=== PATIENT | female | born 1945 | race Caucasian/White ===

== ENCOUNTER 2020-02-14 11:56 | Inpatient (IN) ==
[2020-02-14] MEDS ORDERED: Venlafaxine XR (24 HR) 37.5 MG CAP.ER.24H PO SCH (21:45)
[2020-02-14] MEDS ORDERED: Nystatin POWDER 30 GM BOTTLE TP SCH (22:00)
[2020-02-14] MEDS: *HR* HYDROcodone/Acet 7.5/325 mg TABLET PO PRN (22:28)
[2020-02-14] MEDS: Ondansetron ODT 4 MG TAB.RAPDIS SL PRN (22:28)
[2020-02-14] MEDS: *HR* LORazepam 0.5 MG TABLET PO SCH (23:23)
[2020-02-15] MEDS: Nystatin POWDER 30 GM BOTTLE TP SCH ×4 (00:26→21:19)
[2020-02-15] MEDS: Venlafaxine XR (24 HR) 37.5 MG CAP.ER.24H PO SCH ×2 (00:26→10:26)
[2020-02-15] MEDS: *HR* HYDROcodone/Acet 7.5/325 mg TABLET PO PRN ×2 (04:34→15:59)
[2020-02-15 07:45] LABS: Hematocrit 29.2 % (35.3-44.9); Hemoglobin 9.3 g/dL (11.5-15.4); Mean Corpuscular HGB Conc 31.8 g/dL (31.6-35.5); Mean Corpuscular Hemoglobin 32.1 pg (28.0-33.3); Mean Corpuscular Volume 100.7 fL (83.0-100.0); Mean Platelet Volume 10.5 fL (9.4-12.4); Platelet Count 266 K/mcL (140-400); Red Cell Distribution Width 17.3 % (11.5-14.5); White Blood Count 10.9 K/mcL (4.3-11.1)
[2020-02-15 07:52] LABS: INR 1.6; Prothrombin Time 18.3 Seconds (9.4-12.1)
[2020-02-15 07:55] LABS: Activated Partial Thrombo Time 32.1 Seconds (26.0-36.0)
[2020-02-15 08:04] LABS: BUN/Creatinine Ratio 27 (6-26); Blood Urea Nitrogen 24 mg/dL (8-23); Calcium 8.2 mg/dL (8.6-10.3); Carbon Dioxide 32 mEq/L (23-29); Chloride 105 mEq/L (98-107); Glucose 64 mg/dL (70-105); Osmolality,Calculated 294 (280-300); Potassium 3.8 mEq/L (3.5-5.1); Sodium 141 mEq/L (136-145); eGFR For African Americans > 60 (> 60); eGFR For Non-African Americans > 60 (> 60)
[2020-02-15 08:25] LABS: Lymphocytes # 1.3 K/mcL (0.6-4.6); Macrocytosis Present (Not Present); Neutrophils # 9.2 K/mcL (1.6-8.9)
[2020-02-15] MEDS: predniSONE 5 MG TABLET PO SCH ×2 (10:25→21:14)
[2020-02-15] MEDS: Folic Acid 1 MG TABLET PO SCH (10:26)
[2020-02-15] MEDS: *HR* Amiodarone 200 MG TABLET PO SCH (10:26)
[2020-02-15] MEDS: Celecoxib 200 MG CAPSULE PO SCH (10:27)
[2020-02-15] MEDS: Cefdinir 300 MG CAPSULE PO SCH ×2 (10:27→21:14)
[2020-02-15] MEDS: *HR* LORazepam 0.5 MG TABLET PO SCH ×2 (10:27→21:14)
[2020-02-15] MEDS: *HR* Enoxaparin 100 MG/ML SYRINGE SQ SCH ×2 (15:58→17:30)
[2020-02-15] MEDS ORDERED: Warfarin perPT PO PRN (18:00)
[2020-02-15] MEDS ORDERED: *HR* Warfarin 1 MG TABLET PO ONE (18:00)
[2020-02-15] MEDS: *HR* OxyCODONE/APAP 5/325 TABLET PO PRN (21:28)
[2020-02-16 07:24] LABS: Hemoglobin 9.7 g/dL (11.5-15.4); Mean Corpuscular HGB Conc 32.3 g/dL (31.6-35.5); Mean Corpuscular Hemoglobin 32.6 pg (28.0-33.3); Mean Corpuscular Volume 100.7 fL (83.0-100.0); Mean Platelet Volume 10.4 fL (9.4-12.4); Platelet Count 242 K/mcL (140-400); Red Blood Count 2.98 M/mcL (3.82-4.97); Red Cell Distribution Width 17.2 % (11.5-14.5); White Blood Count 12.8 K/mcL (4.3-11.1)
[2020-02-16 07:31] LABS: INR 1.7; Prothrombin Time 19.4 Seconds (9.4-12.1)
[2020-02-16 07:41] LABS: BUN/Creatinine Ratio 27 (6-26); Blood Urea Nitrogen 21 mg/dL (8-23); Calcium 8.2 mg/dL (8.6-10.3); Carbon Dioxide 31 mEq/L (23-29); Chloride 102 mEq/L (98-107); Glucose 98 mg/dL (70-105); Magnesium 1.8 mg/dL (1.6-2.6); Osmolality,Calculated 289 (280-300); Potassium 4.1 mEq/L (3.5-5.1); Sodium 138 mEq/L (136-145); eGFR For African Americans > 60 (> 60); eGFR For Non-African Americans > 60 (> 60)
[2020-02-16] MEDS: *HR* LORazepam 0.5 MG TABLET PO SCH ×2 (08:34→20:11)
[2020-02-16] MEDS: Folic Acid 1 MG TABLET PO SCH (08:34)
[2020-02-16] MEDS: predniSONE 5 MG TABLET PO SCH ×2 (08:34→20:11)
[2020-02-16] MEDS: Cefdinir 300 MG CAPSULE PO SCH ×2 (08:35→20:10)
[2020-02-16] MEDS: *HR* Amiodarone 200 MG TABLET PO SCH (08:35)
[2020-02-16] MEDS: Venlafaxine XR (24 HR) 37.5 MG CAP.ER.24H PO SCH (08:35)
[2020-02-16] MEDS: Nystatin POWDER 30 GM BOTTLE TP SCH ×3 (08:36→20:12)
[2020-02-16] MEDS: *HR* OxyCODONE/APAP 5/325 TABLET PO PRN ×2 (08:37→20:11)
[2020-02-16] MEDS: Celecoxib 200 MG CAPSULE PO SCH (08:45)
[2020-02-16] MEDS: *HR* Methotrexate 2.5 MG TABLET PO SCH (08:45)
[2020-02-16] MEDS: Celecoxib 100 MG CAPSULE PO SCH (10:29)
[2020-02-16] MEDS: Furosemide 20 MG TABLET PO SCH (17:28)
[2020-02-16] MEDS ORDERED: *HR* Warfarin 1 MG TABLET PO ONE (18:00)
[2020-02-17 08:14] LABS: INR 1.7
[2020-02-17] MEDS: *HR* LORazepam 0.5 MG TABLET PO SCH ×2 (08:14→21:04)
[2020-02-17] MEDS: Celecoxib 100 MG CAPSULE PO SCH (08:14)
[2020-02-17] MEDS: *HR* Amiodarone 200 MG TABLET PO SCH (08:15)
[2020-02-17] MEDS: *HR* OxyCODONE/APAP 5/325 TABLET PO PRN ×2 (08:15→21:09)
[2020-02-17] MEDS: Cefdinir 300 MG CAPSULE PO SCH ×2 (08:15→21:04)
[2020-02-17] MEDS: Venlafaxine XR (24 HR) 37.5 MG CAP.ER.24H PO SCH (08:15)
[2020-02-17] MEDS: Folic Acid 1 MG TABLET PO SCH (08:15)
[2020-02-17] MEDS: predniSONE 5 MG TABLET PO SCH ×2 (08:15→21:01)
[2020-02-17] MEDS: Nystatin POWDER 30 GM BOTTLE TP SCH ×3 (08:16→21:03)
[2020-02-17 09:44] LABS: Basophils % 0.3 %; Eosinophils # 0.1 K/mcL (0.0-0.6); Eosinophils % 0.7 %; Hematocrit 30.2 % (35.3-44.9); Hemoglobin 9.7 g/dL (11.5-15.4); Immature Granulocytes % 3.6 % (0-4); Lymphocytes # 1.5 K/mcL (0.6-4.6); Mean Corpuscular HGB Conc 32.1 g/dL (31.6-35.5); Mean Corpuscular Hemoglobin 32.3 pg (28.0-33.3); Mean Corpuscular Volume 100.7 fL (83.0-100.0); Mean Platelet Volume 11.1 fL (9.4-12.4); Monocytes # 0.8 K/mcL (0.0-1.3); Monocytes % 8.2 %; Neutrophils # 7.2 K/mcL (1.6-8.9); Platelet Count 233 K/mcL (140-400); Red Cell Distribution Width 17.2 % (11.5-14.5); Segmented Neutrophils % 72.2 %
[2020-02-17] MEDS ORDERED: *HR* Warfarin 2 MG TABLET PO ONE (18:00)
[2020-02-18] MEDS: *HR* OxyCODONE/APAP 5/325 TABLET PO PRN ×2 (06:31→11:55)
[2020-02-18 07:18] LABS: Basophils % 0.4 %; Eosinophils # 0.1 K/mcL (0.0-0.6); Eosinophils % 1.4 %; Hemoglobin 9.7 g/dL (11.5-15.4); Immature Granulocytes % 4.4 % (0-4); Lymphocytes # 1.4 K/mcL (0.6-4.6); Lymphocytes % 19.5 %; Mean Corpuscular HGB Conc 32.3 g/dL (31.6-35.5); Mean Corpuscular Hemoglobin 32.4 pg (28.0-33.3); Mean Corpuscular Volume 100.3 fL (83.0-100.0); Mean Platelet Volume 10.8 fL (9.4-12.4); Monocytes # 0.3 K/mcL (0.0-1.3); Monocytes % 4.1 %; Platelet Count 226 K/mcL (140-400); Red Blood Count 2.99 M/mcL (3.82-4.97); Red Cell Distribution Width 17.4 % (11.5-14.5); Segmented Neutrophils % 70.2 %; White Blood Count 7.1 K/mcL (4.3-11.1)
[2020-02-18 07:28] LABS: INR 1.7; Prothrombin Time 19.2 Seconds (9.4-12.1)
[2020-02-18 07:29] LABS: BUN/Creatinine Ratio 32 (6-26); Blood Urea Nitrogen 23 mg/dL (8-23); Calcium 8.2 mg/dL (8.6-10.3); Carbon Dioxide 32 mEq/L (23-29); Chloride 104 mEq/L (98-107); Glucose 95 mg/dL (70-105); Osmolality,Calculated 293 (280-300); Potassium 4.1 mEq/L (3.5-5.1); Sodium 140 mEq/L (136-145); eGFR For African Americans > 60 (> 60); eGFR For Non-African Americans > 60 (> 60)
[2020-02-18] MEDS: Celecoxib 100 MG CAPSULE PO SCH (09:01)
[2020-02-18] MEDS: Cefdinir 300 MG CAPSULE PO SCH ×2 (09:02→21:02)
[2020-02-18] MEDS: *HR* Amiodarone 200 MG TABLET PO SCH (09:02)
[2020-02-18] MEDS: predniSONE 5 MG TABLET PO SCH ×2 (09:02→20:59)
[2020-02-18] MEDS: Folic Acid 1 MG TABLET PO SCH (09:02)
[2020-02-18] MEDS: *HR* LORazepam 0.5 MG TABLET PO SCH ×2 (09:02→21:03)
[2020-02-18] MEDS: Venlafaxine XR (24 HR) 37.5 MG CAP.ER.24H PO SCH (09:02)
[2020-02-18] MEDS: Nystatin POWDER 30 GM BOTTLE TP SCH ×3 (09:03→21:05)
[2020-02-18] MEDS: *HR* HYDROcodone/Acet 7.5/325 mg TABLET PO PRN ×2 (14:36→21:01)
[2020-02-18] MEDS: Furosemide 20 MG TABLET PO SCH (17:20)
[2020-02-18] MEDS ORDERED: *HR* Warfarin 2.5 MG TABLET PO ONE (18:00)
[2020-02-19 07:11] LABS: Hematocrit 29.2 % (35.3-44.9); Hemoglobin 9.4 g/dL (11.5-15.4); Mean Corpuscular HGB Conc 32.2 g/dL (31.6-35.5); Mean Corpuscular Hemoglobin 32.8 pg (28.0-33.3); Mean Corpuscular Volume 101.7 fL (83.0-100.0); Mean Platelet Volume 10.8 fL (9.4-12.4); Platelet Count 219 K/mcL (140-400); Red Blood Count 2.87 M/mcL (3.82-4.97); Red Cell Distribution Width 17.3 % (11.5-14.5)
[2020-02-19 07:27] LABS: INR 1.7; Prothrombin Time 18.9 Seconds (9.4-12.1)
[2020-02-19 07:43] LABS: BUN/Creatinine Ratio 31 (6-26); Blood Urea Nitrogen 25 mg/dL (8-23); Calcium 8.1 mg/dL (8.6-10.3); Carbon Dioxide 31 mEq/L (23-29); Chloride 104 mEq/L (98-107); Glucose 90 mg/dL (70-105); Osmolality,Calculated 296 (280-300); Sodium 141 mEq/L (136-145); eGFR For African Americans > 60 (> 60); eGFR For Non-African Americans > 60 (> 60)
[2020-02-19] MEDS: *HR* Amiodarone 200 MG TABLET PO SCH (09:17)
[2020-02-19] MEDS: Venlafaxine XR (24 HR) 37.5 MG CAP.ER.24H PO SCH (09:17)
[2020-02-19] MEDS: *HR* LORazepam 0.5 MG TABLET PO SCH ×2 (09:17→20:00)
[2020-02-19] MEDS: predniSONE 5 MG TABLET PO SCH ×2 (09:17→20:00)
[2020-02-19] MEDS: Folic Acid 1 MG TABLET PO SCH (09:17)
[2020-02-19] MEDS: Celecoxib 100 MG CAPSULE PO SCH (09:19)
[2020-02-19] MEDS: Nystatin POWDER 30 GM BOTTLE TP SCH ×3 (09:19→20:01)
[2020-02-19] MEDS: Cefdinir 300 MG CAPSULE PO SCH ×2 (09:19→20:00)
[2020-02-19] MEDS: *HR* HYDROcodone/Acet 7.5/325 mg TABLET PO PRN (09:19)
[2020-02-19] MEDS: *HR* OxyCODONE/APAP 5/325 TABLET PO PRN ×2 (14:36→20:40)
[2020-02-19] MEDS ORDERED: *HR* Warfarin 3 MG TABLET PO ONE (18:00)
[2020-02-20 07:45] LABS: Prothrombin Time 22.2 Seconds (9.4-12.1)
[2020-02-20] MEDS: Cefdinir 300 MG CAPSULE PO SCH ×2 (08:36→22:20)
[2020-02-20] MEDS: *HR* LORazepam 0.5 MG TABLET PO SCH ×2 (08:37→22:20)
[2020-02-20] MEDS: Venlafaxine XR (24 HR) 37.5 MG CAP.ER.24H PO SCH (08:37)
[2020-02-20] MEDS: *HR* OxyCODONE/APAP 5/325 TABLET PO PRN ×2 (08:37→17:40)
[2020-02-20] MEDS: Celecoxib 100 MG CAPSULE PO SCH (08:38)
[2020-02-20] MEDS: predniSONE 5 MG TABLET PO SCH ×2 (08:38→22:20)
[2020-02-20] MEDS: *HR* Amiodarone 200 MG TABLET PO SCH (08:38)
[2020-02-20] MEDS: Folic Acid 1 MG TABLET PO SCH (08:38)
[2020-02-20] MEDS: Nystatin POWDER 30 GM BOTTLE TP SCH ×3 (08:47→22:21)
[2020-02-20] MEDS: Furosemide 20 MG TABLET PO SCH (17:36)
[2020-02-20] MEDS ORDERED: *HR* Warfarin 3 MG TABLET PO ONE (18:00)
[2020-02-20] MEDS: *HR* HYDROcodone/Acet 7.5/325 mg TABLET PO PRN (22:20)
[2020-02-21] MEDS: Folic Acid 1 MG TABLET PO SCH (08:56)
[2020-02-21] MEDS: Celecoxib 100 MG CAPSULE PO SCH (08:56)
[2020-02-21] MEDS: Cefdinir 300 MG CAPSULE PO SCH ×2 (08:56→21:42)
[2020-02-21] MEDS: Venlafaxine XR (24 HR) 37.5 MG CAP.ER.24H PO SCH (08:56)
[2020-02-21] MEDS: *HR* OxyCODONE/APAP 5/325 TABLET PO PRN ×2 (08:56→21:43)
[2020-02-21] MEDS: *HR* Amiodarone 200 MG TABLET PO SCH (08:57)
[2020-02-21] MEDS: predniSONE 5 MG TABLET PO SCH ×2 (08:57→21:41)
[2020-02-21] MEDS: Nystatin POWDER 30 GM BOTTLE TP SCH ×3 (08:57→21:44)
[2020-02-21] MEDS: *HR* LORazepam 0.5 MG TABLET PO SCH ×2 (08:57→21:42)
[2020-02-21 16:01] LABS: INR 2.8; Prothrombin Time 31.7 Seconds (9.4-12.1)
[2020-02-22 07:02] LABS: INR 2.7; Prothrombin Time 30.7 Seconds (9.4-12.1)
[2020-02-22] MEDS: Celecoxib 100 MG CAPSULE PO SCH (09:13)
[2020-02-22] MEDS: *HR* Amiodarone 200 MG TABLET PO SCH (09:14)
[2020-02-22] MEDS: Folic Acid 1 MG TABLET PO SCH (09:14)
[2020-02-22] MEDS: Cefdinir 300 MG CAPSULE PO SCH ×2 (09:14→21:29)
[2020-02-22] MEDS: *HR* LORazepam 0.5 MG TABLET PO SCH ×2 (09:15→21:30)
[2020-02-22] MEDS: predniSONE 5 MG TABLET PO SCH ×2 (09:16→21:31)
[2020-02-22] MEDS: Nystatin POWDER 30 GM BOTTLE TP SCH ×3 (09:17→21:35)
[2020-02-22] MEDS: Venlafaxine XR (24 HR) 37.5 MG CAP.ER.24H PO SCH (09:17)
[2020-02-22] MEDS: *HR* OxyCODONE/APAP 5/325 TABLET PO PRN ×2 (09:26→21:32)
[2020-02-22] MEDS: Furosemide 20 MG TABLET PO SCH (17:33)
[2020-02-22] MEDS ORDERED: *HR* Warfarin 1 MG TABLET PO ONE (18:00)
[2020-02-23 07:49] LABS: Hematocrit 30.4 % (35.3-44.9); Hemoglobin 9.7 g/dL (11.5-15.4); Mean Corpuscular HGB Conc 31.9 g/dL (31.6-35.5); Mean Corpuscular Hemoglobin 32.4 pg (28.0-33.3); Mean Corpuscular Volume 101.7 fL (83.0-100.0); Mean Platelet Volume 10.6 fL (9.4-12.4); Platelet Count 183 K/mcL (140-400); Red Blood Count 2.99 M/mcL (3.82-4.97); Red Cell Distribution Width 17.6 % (11.5-14.5); White Blood Count 9.8 K/mcL (4.3-11.1)
[2020-02-23 08:10] LABS: INR 2.5; Prothrombin Time 28.2 Seconds (9.4-12.1)
[2020-02-23 08:12] LABS: BUN/Creatinine Ratio 33 (6-26); Blood Urea Nitrogen 29 mg/dL (8-23); Calcium 8.3 mg/dL (8.6-10.3); Carbon Dioxide 31 mEq/L (23-29); Chloride 105 mEq/L (98-107); Glucose 95 mg/dL (70-105); Osmolality,Calculated 296 (280-300); Potassium 4.1 mEq/L (3.5-5.1); Sodium 140 mEq/L (136-145); eGFR For African Americans > 60 (> 60); eGFR For Non-African Americans > 60 (> 60)
[2020-02-23 08:40] LABS: Lymphocytes # 1.2 K/mcL (0.6-4.6); Monocytes # 0.6 K/mcL (0.0-1.3); Neutrophils # 6.7 K/mcL (1.6-8.9)
[2020-02-23 08:41] LABS: Anisocytosis 1+ (Not Present); Macrocytosis Present (Not Present); Platelet Estimate Normal (Normal)
[2020-02-23] MEDS: Cefdinir 300 MG CAPSULE PO SCH ×2 (10:14→21:55)
[2020-02-23] MEDS: Celecoxib 100 MG CAPSULE PO SCH (10:14)
[2020-02-23] MEDS: *HR* OxyCODONE/APAP 5/325 TABLET PO PRN ×2 (10:14→21:56)
[2020-02-23] MEDS: *HR* LORazepam 0.5 MG TABLET PO SCH ×2 (10:14→21:55)
[2020-02-23] MEDS: *HR* Amiodarone 200 MG TABLET PO SCH (10:15)
[2020-02-23] MEDS: Folic Acid 1 MG TABLET PO SCH (10:15)
[2020-02-23] MEDS: Venlafaxine XR (24 HR) 37.5 MG CAP.ER.24H PO SCH (10:15)
[2020-02-23] MEDS: predniSONE 5 MG TABLET PO SCH ×2 (10:15→21:56)
[2020-02-23] MEDS: Nystatin POWDER 30 GM BOTTLE TP SCH ×3 (10:19→17:00)
[2020-02-23] MEDS: *HR* Methotrexate 2.5 MG TABLET PO SCH (10:21)
[2020-02-23] MEDS ORDERED: *HR* Warfarin 1 MG TABLET PO ONE (18:00)
[2020-02-24 07:12] LABS: INR 2.6; Prothrombin Time 28.9 Seconds (9.4-12.1)
[2020-02-24] MEDS: *HR* Amiodarone 200 MG TABLET PO SCH (08:21)
[2020-02-24] MEDS: *HR* LORazepam 0.5 MG TABLET PO SCH ×2 (08:21→20:02)
[2020-02-24] MEDS: Venlafaxine XR (24 HR) 37.5 MG CAP.ER.24H PO SCH (08:21)
[2020-02-24] MEDS: Folic Acid 1 MG TABLET PO SCH (08:22)
[2020-02-24] MEDS: Cefdinir 300 MG CAPSULE PO SCH ×2 (08:22→20:02)
[2020-02-24] MEDS: Celecoxib 100 MG CAPSULE PO SCH (08:23)
[2020-02-24] MEDS: predniSONE 5 MG TABLET PO SCH ×2 (08:25→20:02)
[2020-02-24] MEDS: *HR* HYDROcodone/Acet 7.5/325 mg TABLET PO PRN (08:31)
[2020-02-24] MEDS: Nystatin POWDER 30 GM BOTTLE TP SCH ×3 (11:15→20:03)
[2020-02-24] MEDS: Furosemide 20 MG TABLET PO SCH (17:24)
[2020-02-24] MEDS ORDERED: *HR* Warfarin 1 MG TABLET PO ONE (18:00)
[2020-02-25 07:33] LABS: INR 2.6; Prothrombin Time 29.2 Seconds (9.4-12.1)
[2020-02-25] MEDS: Folic Acid 1 MG TABLET PO SCH (08:10)
[2020-02-25] MEDS: Celecoxib 100 MG CAPSULE PO SCH (08:10)
[2020-02-25] MEDS: predniSONE 5 MG TABLET PO SCH ×2 (08:10→20:20)
[2020-02-25] MEDS: Venlafaxine XR (24 HR) 37.5 MG CAP.ER.24H PO SCH (08:10)
[2020-02-25] MEDS: *HR* LORazepam 0.5 MG TABLET PO SCH ×2 (08:11→20:20)
[2020-02-25] MEDS: *HR* Amiodarone 200 MG TABLET PO SCH (08:11)
[2020-02-25] MEDS: Nystatin POWDER 30 GM BOTTLE TP SCH ×3 (08:12→20:50)
[2020-02-25] MEDS: *HR* HYDROcodone/Acet 7.5/325 mg TABLET PO PRN (09:50)
[2020-02-25] MEDS ORDERED: *HR* Warfarin 1 MG TABLET PO ONE (18:00)
[2020-02-25] MEDS: *HR* OxyCODONE/APAP 5/325 TABLET PO PRN (20:22)
[2020-02-26 05:50] LABS: INR 2.4; Prothrombin Time 27.3 Seconds (9.4-12.1)
[2020-02-26] MEDS: Celecoxib 100 MG CAPSULE PO SCH (09:06)
[2020-02-26] MEDS: predniSONE 5 MG TABLET PO SCH ×2 (09:06→20:34)
[2020-02-26] MEDS: *HR* Amiodarone 200 MG TABLET PO SCH (09:06)
[2020-02-26] MEDS: Venlafaxine XR (24 HR) 37.5 MG CAP.ER.24H PO SCH (09:06)
[2020-02-26] MEDS: *HR* LORazepam 0.5 MG TABLET PO SCH ×2 (09:06→20:34)
[2020-02-26] MEDS: Folic Acid 1 MG TABLET PO SCH (09:07)
[2020-02-26] MEDS: Nystatin POWDER 30 GM BOTTLE TP SCH ×3 (09:07→20:35)
[2020-02-26] MEDS: *HR* OxyCODONE/APAP 5/325 TABLET PO PRN ×2 (14:21→20:34)
[2020-02-26] MEDS: Furosemide 20 MG TABLET PO SCH (17:43)
[2020-02-26] MEDS ORDERED: *HR* Warfarin 2 MG TABLET PO ONE (18:00)
[2020-02-27] MEDS: *HR* OxyCODONE/APAP 5/325 TABLET PO PRN ×2 (06:39→16:06)
[2020-02-27 06:49] LABS: Prothrombin Time 32.2 Seconds (9.4-12.1)
[2020-02-27 06:50] LABS: INR 2.9
[2020-02-27 09:08] LABS: Basophils # 0.1 K/mcL (0.0-0.2); Basophils % 0.6 %; Eosinophils # 0.2 K/mcL (0.0-0.6); Eosinophils % 2.4 %; Hematocrit 30.2 % (35.3-44.9); Hemoglobin 9.7 g/dL (11.5-15.4); Immature Granulocytes % 2.5 % (0-4); Lymphocytes # 2.2 K/mcL (0.6-4.6); Lymphocytes % 22.7 %; Mean Corpuscular HGB Conc 32.1 g/dL (31.6-35.5); Mean Corpuscular Hemoglobin 33.1 pg (28.0-33.3); Mean Corpuscular Volume 103.1 fL (83.0-100.0); Mean Platelet Volume 10.9 fL (9.4-12.4); Monocytes # 0.5 K/mcL (0.0-1.3); Monocytes % 4.9 %; Neutrophils # 6.4 K/mcL (1.6-8.9); Platelet Count 150 K/mcL (140-400); Red Blood Count 2.93 M/mcL (3.82-4.97); Red Cell Distribution Width 17.2 % (11.5-14.5); Segmented Neutrophils % 66.9 %; White Blood Count 9.6 K/mcL (4.3-11.1)
[2020-02-27] MEDS: *HR* Amiodarone 200 MG TABLET PO SCH (09:08)
[2020-02-27] MEDS: predniSONE 5 MG TABLET PO SCH ×2 (09:08→20:46)
[2020-02-27] MEDS: Folic Acid 1 MG TABLET PO SCH (09:09)
[2020-02-27] MEDS: Venlafaxine XR (24 HR) 37.5 MG CAP.ER.24H PO SCH (09:10)
[2020-02-27] MEDS: *HR* LORazepam 0.5 MG TABLET PO SCH ×2 (09:11→20:47)
[2020-02-27] MEDS: Nystatin POWDER 30 GM BOTTLE TP SCH ×3 (09:11→20:47)
[2020-02-27] MEDS: Celecoxib 100 MG CAPSULE PO SCH (09:11)
[2020-02-27 09:22] LABS: BUN/Creatinine Ratio 34 (6-26); Blood Urea Nitrogen 31 mg/dL (8-23); Calcium 8.3 mg/dL (8.6-10.3); Carbon Dioxide 29 mEq/L (23-29); Chloride 104 mEq/L (98-107); Glucose 78 mg/dL (70-105); Osmolality,Calculated 293 (280-300); Potassium 3.9 mEq/L (3.5-5.1); Sodium 139 mEq/L (136-145); eGFR For African Americans > 60 (> 60); eGFR For Non-African Americans 60 (> 60)
[2020-02-27] MEDS: *HR* HYDROcodone/Acet 7.5/325 mg TABLET PO PRN ×2 (10:06→20:46)
[2020-02-27] MEDS ORDERED: *HR* Warfarin 1 MG TABLET PO ONE (18:00)
[2020-02-28 07:58] LABS: INR 3.4
[2020-02-28] MEDS: Venlafaxine XR (24 HR) 37.5 MG CAP.ER.24H PO SCH (08:28)
[2020-02-28] MEDS: *HR* Amiodarone 200 MG TABLET PO SCH (08:28)
[2020-02-28] MEDS: predniSONE 5 MG TABLET PO SCH ×2 (08:28→22:04)
[2020-02-28] MEDS: Celecoxib 100 MG CAPSULE PO SCH (08:28)
[2020-02-28] MEDS: *HR* LORazepam 0.5 MG TABLET PO SCH ×2 (08:28→22:05)
[2020-02-28] MEDS: Folic Acid 1 MG TABLET PO SCH (08:28)
[2020-02-28] MEDS: *HR* OxyCODONE/APAP 5/325 TABLET PO PRN ×2 (08:29→16:56)
[2020-02-28] MEDS: Nystatin POWDER 30 GM BOTTLE TP SCH ×3 (08:33→22:06)
[2020-02-28] MEDS: *HR* HYDROcodone/Acet 7.5/325 mg TABLET PO PRN (11:07)
[2020-02-28] MEDS: Furosemide 20 MG TABLET PO SCH (16:50)
[2020-02-29 08:03] LABS: Basophils # 0.1 K/mcL (0.0-0.2); Basophils % 0.7 %; Eosinophils # 0.2 K/mcL (0.0-0.6); Hematocrit 30.3 % (35.3-44.9); Hemoglobin 9.7 g/dL (11.5-15.4); Lymphocytes # 1.6 K/mcL (0.6-4.6); Lymphocytes % 15.2 %; Mean Corpuscular Hemoglobin 33.1 pg (28.0-33.3); Mean Corpuscular Volume 103.4 fL (83.0-100.0); Mean Platelet Volume 11.2 fL (9.4-12.4); Monocytes # 0.6 K/mcL (0.0-1.3); Monocytes % 5.7 %; Neutrophils # 7.4 K/mcL (1.6-8.9); Platelet Count 136 K/mcL (140-400); Red Blood Count 2.93 M/mcL (3.82-4.97); Red Cell Distribution Width 17.6 % (11.5-14.5); Segmented Neutrophils % 72.4 %; White Blood Count 10.2 K/mcL (4.3-11.1)
[2020-02-29 08:19] LABS: INR 3.2; Prothrombin Time 35.7 Seconds (9.4-12.1)
[2020-02-29 08:21] LABS: Calcium 8.3 mg/dL (8.6-10.3)
[2020-02-29] MEDS: polyethylene glycoL 3350 17 GM POWD.PACK PO PRN (09:56)
[2020-02-29] MEDS: Venlafaxine XR (24 HR) 37.5 MG CAP.ER.24H PO SCH (09:56)
[2020-02-29] MEDS: Celecoxib 100 MG CAPSULE PO SCH (09:57)
[2020-02-29] MEDS: *HR* HYDROcodone/Acet 7.5/325 mg TABLET PO PRN (09:57)
[2020-02-29] MEDS: *HR* Amiodarone 200 MG TABLET PO SCH (09:57)
[2020-02-29] MEDS: predniSONE 5 MG TABLET PO SCH ×2 (09:57→20:39)
[2020-02-29] MEDS: Folic Acid 1 MG TABLET PO SCH (09:57)
[2020-02-29] MEDS: Nystatin POWDER 30 GM BOTTLE TP SCH ×3 (09:58→20:39)
[2020-02-29] MEDS: *HR* OxyCODONE/APAP 5/325 TABLET PO PRN (20:43)
[2020-03-01 07:43] LABS: INR 2.6; Prothrombin Time 28.9 Seconds (9.4-12.1)
[2020-03-01] MEDS: Venlafaxine XR (24 HR) 37.5 MG CAP.ER.24H PO SCH (08:57)
[2020-03-01] MEDS: Folic Acid 1 MG TABLET PO SCH (08:58)
[2020-03-01] MEDS: predniSONE 5 MG TABLET PO SCH ×2 (08:59→20:37)
[2020-03-01] MEDS: *HR* Amiodarone 200 MG TABLET PO SCH (08:59)
[2020-03-01] MEDS: Celecoxib 100 MG CAPSULE PO SCH (09:07)
[2020-03-01] MEDS: Nystatin POWDER 30 GM BOTTLE TP SCH ×3 (09:09→20:37)
[2020-03-01] MEDS: *HR* Methotrexate 2.5 MG TABLET PO SCH (09:10)
[2020-03-01] MEDS: polyethylene glycoL 3350 17 GM POWD.PACK PO PRN (12:00)
[2020-03-01] MEDS: *HR* OxyCODONE/APAP 5/325 TABLET PO PRN ×2 (16:21→22:25)
[2020-03-01] MEDS: Furosemide 20 MG TABLET PO SCH (16:22)
[2020-03-01] MEDS ORDERED: *HR* Warfarin 1 MG TABLET PO ONE (18:00)
[2020-03-01] MEDS: FLEET RC PRN (20:50)
[2020-03-02 06:40] LABS: INR 2.5; Prothrombin Time 28.1 Seconds (9.4-12.1)
[2020-03-02] MEDS: Celecoxib 100 MG CAPSULE PO SCH (09:34)
[2020-03-02] MEDS: Venlafaxine XR (24 HR) 37.5 MG CAP.ER.24H PO SCH (09:34)
[2020-03-02] MEDS: predniSONE 5 MG TABLET PO SCH ×2 (09:35→20:26)
[2020-03-02] MEDS: Folic Acid 1 MG TABLET PO SCH (09:35)
[2020-03-02] MEDS: *HR* Amiodarone 200 MG TABLET PO SCH (09:36)
[2020-03-02] MEDS: *HR* OxyCODONE/APAP 5/325 TABLET PO PRN ×2 (09:41→23:07)
[2020-03-02] MEDS: Nystatin POWDER 30 GM BOTTLE TP SCH ×3 (09:47→20:26)
[2020-03-02] MEDS: Ondansetron ODT 4 MG TAB.RAPDIS SL PRN (17:18)
[2020-03-02] MEDS ORDERED: *HR* Warfarin 1 MG TABLET PO ONE (18:00)
[2020-03-03 07:55] LABS: INR 2.4; Prothrombin Time 26.6 Seconds (9.4-12.1)
[2020-03-03] MEDS: *HR* OxyCODONE/APAP 5/325 TABLET PO PRN ×2 (10:12→20:54)
[2020-03-03] MEDS: Folic Acid 1 MG TABLET PO SCH (10:13)
[2020-03-03] MEDS: Celecoxib 100 MG CAPSULE PO SCH (10:13)
[2020-03-03] MEDS: *HR* Amiodarone 200 MG TABLET PO SCH (10:13)
[2020-03-03] MEDS: predniSONE 5 MG TABLET PO SCH ×2 (10:13→20:44)
[2020-03-03] MEDS: Venlafaxine XR (24 HR) 37.5 MG CAP.ER.24H PO SCH (10:13)
[2020-03-03] MEDS: Nystatin POWDER 30 GM BOTTLE TP SCH ×3 (10:14→20:43)
[2020-03-03] MEDS: polyethylene glycoL 3350 17 GM POWD.PACK PO PRN (10:14)
[2020-03-03] MEDS: Furosemide 20 MG TABLET PO SCH (16:31)
[2020-03-03] MEDS ORDERED: *HR* Warfarin 1 MG TABLET PO ONE (18:00)
[2020-03-04 07:00] LABS: INR 2.9; Prothrombin Time 32.6 Seconds (9.4-12.1)
[2020-03-04] MEDS: Venlafaxine XR (24 HR) 37.5 MG CAP.ER.24H PO SCH (09:08)
[2020-03-04] MEDS: *HR* OxyCODONE/APAP 5/325 TABLET PO PRN ×2 (09:09→16:31)
[2020-03-04] MEDS: Celecoxib 100 MG CAPSULE PO SCH (09:09)
[2020-03-04] MEDS: Folic Acid 1 MG TABLET PO SCH (09:10)
[2020-03-04] MEDS: *HR* Amiodarone 200 MG TABLET PO SCH (09:10)
[2020-03-04] MEDS: predniSONE 5 MG TABLET PO SCH ×2 (09:11→21:33)
[2020-03-04] MEDS: Nystatin POWDER 30 GM BOTTLE TP SCH ×3 (09:12→21:33)
[2020-03-05] MEDS: *HR* Amiodarone 200 MG TABLET PO SCH (08:48)
[2020-03-05] MEDS: *HR* OxyCODONE/APAP 5/325 TABLET PO PRN ×2 (08:48→18:02)
[2020-03-05] MEDS: predniSONE 5 MG TABLET PO SCH ×2 (08:48→21:13)
[2020-03-05] MEDS: Venlafaxine XR (24 HR) 37.5 MG CAP.ER.24H PO SCH (08:48)
[2020-03-05] MEDS: Celecoxib 100 MG CAPSULE PO SCH (08:49)
[2020-03-05] MEDS: Folic Acid 1 MG TABLET PO SCH (08:49)
[2020-03-05] MEDS: Nystatin POWDER 30 GM BOTTLE TP SCH ×3 (08:49→21:09)
[2020-03-05 13:45] LABS: INR 2.7
[2020-03-05 13:46] LABS: Prothrombin Time 30.5 Seconds (9.4-12.1)
[2020-03-05] MEDS ORDERED: *HR* Warfarin 1 MG TABLET PO ONE (18:00)
[2020-03-05] MEDS: Furosemide 20 MG TABLET PO SCH (18:02)
[2020-03-06 08:00] LABS: Hematocrit 28.5 % (35.3-44.9); Hemoglobin 9.2 g/dL (11.5-15.4); Mean Corpuscular HGB Conc 32.3 g/dL (31.6-35.5); Mean Corpuscular Hemoglobin 33.2 pg (28.0-33.3); Mean Corpuscular Volume 102.9 fL (83.0-100.0); Platelet Count 160 K/mcL (140-400); Red Blood Count 2.77 M/mcL (3.82-4.97); Red Cell Distribution Width 17.1 % (11.5-14.5); White Blood Count 8.9 K/mcL (4.3-11.1)
[2020-03-06 08:14] LABS: BUN/Creatinine Ratio 30 (6-26); Blood Urea Nitrogen 29 mg/dL (8-23); Calcium 8.4 mg/dL (8.6-10.3); Carbon Dioxide 28 mEq/L (23-29); Chloride 104 mEq/L (98-107); Glucose 87 mg/dL (70-105); Osmolality,Calculated 291 (280-300); Sodium 138 mEq/L (136-145); eGFR For African Americans > 60 (> 60); eGFR For Non-African Americans 56 (> 60)
[2020-03-06 08:15] LABS: INR 2.6; Prothrombin Time 29.4 Seconds (9.4-12.1)
[2020-03-06] MEDS: *HR* Amiodarone 200 MG TABLET PO SCH (10:17)
[2020-03-06] MEDS: Celecoxib 100 MG CAPSULE PO SCH (10:17)
[2020-03-06] MEDS: Folic Acid 1 MG TABLET PO SCH (10:18)
[2020-03-06] MEDS: predniSONE 5 MG TABLET PO SCH ×2 (10:18→21:28)
[2020-03-06] MEDS: Venlafaxine XR (24 HR) 37.5 MG CAP.ER.24H PO SCH (10:18)
[2020-03-06] MEDS: Nystatin POWDER 30 GM BOTTLE TP SCH ×3 (10:19→21:29)
[2020-03-06] MEDS: *HR* OxyCODONE/APAP 5/325 TABLET PO PRN ×2 (10:23→16:32)
[2020-03-06] MEDS ORDERED: *HR* Warfarin 1 MG TABLET PO ONE (18:00)
[2020-03-07 08:15] LABS: INR 2.5; Prothrombin Time 27.9 Seconds (9.4-12.1)
[2020-03-07] MEDS: Celecoxib 100 MG CAPSULE PO SCH (09:28)
[2020-03-07] MEDS: Folic Acid 1 MG TABLET PO SCH (09:28)
[2020-03-07] MEDS: Nystatin POWDER 30 GM BOTTLE TP SCH ×3 (09:29→19:58)
[2020-03-07] MEDS: Venlafaxine XR (24 HR) 37.5 MG CAP.ER.24H PO SCH (09:29)
[2020-03-07] MEDS: predniSONE 5 MG TABLET PO SCH ×2 (09:29→19:58)
[2020-03-07] MEDS: *HR* Amiodarone 200 MG TABLET PO SCH (09:29)
[2020-03-07] MEDS: *HR* HYDROcodone/Acet 7.5/325 mg TABLET PO PRN (12:09)
[2020-03-07] MEDS: Furosemide 20 MG TABLET PO SCH (17:45)
[2020-03-07] MEDS ORDERED: *HR* Warfarin 1 MG TABLET PO ONE (18:00)
[2020-03-07] MEDS: *HR* OxyCODONE/APAP 5/325 TABLET PO PRN (19:58)
[2020-03-08 07:24] LABS: INR 2.7; Prothrombin Time 30.2 Seconds (9.4-12.1)
[2020-03-08] MEDS: Folic Acid 1 MG TABLET PO SCH (08:51)
[2020-03-08] MEDS: *HR* Amiodarone 200 MG TABLET PO SCH (08:51)
[2020-03-08] MEDS: Celecoxib 100 MG CAPSULE PO SCH (08:51)
[2020-03-08] MEDS: predniSONE 5 MG TABLET PO SCH ×2 (08:51→21:28)
[2020-03-08] MEDS: Venlafaxine XR (24 HR) 37.5 MG CAP.ER.24H PO SCH (08:51)
[2020-03-08] MEDS: *HR* HYDROcodone/Acet 7.5/325 mg TABLET PO PRN (08:52)
[2020-03-08] MEDS: Nystatin POWDER 30 GM BOTTLE TP SCH ×3 (08:55→21:30)
[2020-03-08] MEDS: *HR* Methotrexate 2.5 MG TABLET PO SCH (08:57)
[2020-03-08] MEDS ORDERED: *HR* Warfarin 1 MG TABLET PO ONE (18:00)
[2020-03-08] MEDS: *HR* OxyCODONE/APAP 5/325 TABLET PO PRN (21:28)
[2020-03-09 08:32] LABS: INR 3.3; Prothrombin Time 37.4 Seconds (9.4-12.1)
[2020-03-09] MEDS: predniSONE 5 MG TABLET PO SCH ×2 (09:53→20:30)
[2020-03-09] MEDS: Venlafaxine XR (24 HR) 37.5 MG CAP.ER.24H PO SCH (09:53)
[2020-03-09] MEDS: Folic Acid 1 MG TABLET PO SCH (09:54)
[2020-03-09] MEDS: *HR* Amiodarone 200 MG TABLET PO SCH (09:54)
[2020-03-09] MEDS: Celecoxib 100 MG CAPSULE PO SCH (09:54)
[2020-03-09] MEDS: Nystatin POWDER 30 GM BOTTLE TP SCH ×3 (09:55→20:30)
[2020-03-09] MEDS: Ondansetron ODT 4 MG TAB.RAPDIS SL PRN ×2 (10:02→20:30)
[2020-03-09] MEDS: *HR* OxyCODONE/APAP 5/325 TABLET PO PRN ×2 (10:02→20:29)
[2020-03-09] MEDS: Furosemide 20 MG TABLET PO SCH (17:38)
[2020-03-10 08:41] LABS: INR 2.9; Prothrombin Time 32.7 Seconds (9.4-12.1)
[2020-03-10] MEDS: predniSONE 5 MG TABLET PO SCH ×2 (10:18→20:06)
[2020-03-10] MEDS: Celecoxib 100 MG CAPSULE PO SCH (10:18)
[2020-03-10] MEDS: *HR* Amiodarone 200 MG TABLET PO SCH (10:19)
[2020-03-10] MEDS: Venlafaxine XR (24 HR) 37.5 MG CAP.ER.24H PO SCH (10:19)
[2020-03-10] MEDS: *HR* OxyCODONE/APAP 5/325 TABLET PO PRN ×2 (10:19→20:06)
[2020-03-10] MEDS: Ondansetron ODT 4 MG TAB.RAPDIS SL PRN (10:19)
[2020-03-10] MEDS: Nystatin POWDER 30 GM BOTTLE TP SCH ×3 (10:20→20:07)
[2020-03-10] MEDS: Folic Acid 1 MG TABLET PO SCH (10:20)
[2020-03-11 08:01] LABS: INR 1.9; Prothrombin Time 21.9 Seconds (9.4-12.1)
[2020-03-11] MEDS: Folic Acid 1 MG TABLET PO SCH (10:44)
[2020-03-11] MEDS: Venlafaxine XR (24 HR) 37.5 MG CAP.ER.24H PO SCH (10:44)
[2020-03-11] MEDS: Celecoxib 100 MG CAPSULE PO SCH (10:44)
[2020-03-11] MEDS: *HR* OxyCODONE/APAP 5/325 TABLET PO PRN ×2 (10:44→18:11)
[2020-03-11] MEDS: *HR* Amiodarone 200 MG TABLET PO SCH (10:44)
[2020-03-11] MEDS: predniSONE 5 MG TABLET PO SCH ×2 (10:44→20:28)
[2020-03-11] MEDS: Nystatin POWDER 30 GM BOTTLE TP SCH ×3 (10:45→20:31)
[2020-03-11] MEDS: Ondansetron ODT 4 MG TAB.RAPDIS SL PRN (10:46)
[2020-03-11] MEDS: Furosemide 20 MG TABLET PO SCH (17:33)
[2020-03-11] MEDS ORDERED: *HR* Warfarin 1 MG TABLET PO ONE (18:00)
[2020-03-12 07:16] LABS: INR 1.4; Prothrombin Time 16.2 Seconds (9.4-12.1)
[2020-03-12] MEDS: Ondansetron ODT 4 MG TAB.RAPDIS SL PRN (08:14)
[2020-03-12] MEDS: predniSONE 5 MG TABLET PO SCH ×2 (08:14→20:43)
[2020-03-12] MEDS: Nystatin POWDER 30 GM BOTTLE TP SCH ×3 (08:14→20:56)
[2020-03-12] MEDS: *HR* OxyCODONE/APAP 5/325 TABLET PO PRN ×2 (08:14→20:43)
[2020-03-12] MEDS: Celecoxib 100 MG CAPSULE PO SCH (08:15)
[2020-03-12] MEDS: *HR* Amiodarone 200 MG TABLET PO SCH (08:15)
[2020-03-12] MEDS: Venlafaxine XR (24 HR) 37.5 MG CAP.ER.24H PO SCH (08:15)
[2020-03-12] MEDS: Folic Acid 1 MG TABLET PO SCH (08:15)
[2020-03-12] MEDS ORDERED: *HR* Warfarin 1 MG TABLET PO ONE (18:00)
[2020-03-13 08:02] LABS: INR 1.5; Prothrombin Time 16.8 Seconds (9.4-12.1)
[2020-03-13 09:27] LABS: Basophils % 0.3 %; Eosinophils # 0.1 K/mcL (0.0-0.6); Eosinophils % 1.5 %; Hematocrit 35.2 % (35.3-44.9); Hemoglobin 11.2 g/dL (11.5-15.4); Immature Granulocytes % 1.6 % (0-4); Lymphocytes # 2.4 K/mcL (0.6-4.6); Lymphocytes % 25.9 %; Mean Corpuscular HGB Conc 31.8 g/dL (31.6-35.5); Mean Corpuscular Hemoglobin 33.8 pg (28.0-33.3); Mean Corpuscular Volume 106.3 fL (83.0-100.0); Mean Platelet Volume 10.6 fL (9.4-12.4); Monocytes # 0.2 K/mcL (0.0-1.3); Monocytes % 1.9 %; Neutrophils # 6.4 K/mcL (1.6-8.9); Platelet Count 209 K/mcL (140-400); Red Blood Count 3.31 M/mcL (3.82-4.97); Red Cell Distribution Width 16.8 % (11.5-14.5); Segmented Neutrophils % 68.8 %; White Blood Count 9.2 K/mcL (4.3-11.1)
[2020-03-13] MEDS: Celecoxib 100 MG CAPSULE PO SCH (09:32)
[2020-03-13] MEDS: *HR* Amiodarone 200 MG TABLET PO SCH (09:33)
[2020-03-13] MEDS: Venlafaxine XR (24 HR) 37.5 MG CAP.ER.24H PO SCH (09:34)
[2020-03-13] MEDS: Folic Acid 1 MG TABLET PO SCH (09:34)
[2020-03-13] MEDS: predniSONE 5 MG TABLET PO SCH ×2 (09:35→20:29)
[2020-03-13] MEDS: *HR* OxyCODONE/APAP 5/325 TABLET PO PRN ×2 (09:36→20:29)
[2020-03-13] MEDS: Nystatin POWDER 30 GM BOTTLE TP SCH ×3 (09:37→20:32)
[2020-03-13 09:49] LABS: Calcium 9.1 mg/dL (8.6-10.3)
[2020-03-13] MEDS: Furosemide 20 MG TABLET PO SCH (17:10)
[2020-03-13] MEDS ORDERED: *HR* Warfarin 2 MG TABLET PO ONE (18:00)
[2020-03-14] MEDS ORDERED: *HR* HYDROcodone/Acet 7.5/325 mg TABLET PO PRN (08:22)
[2020-03-14] MEDS: Celecoxib 100 MG CAPSULE PO SCH (09:22)
[2020-03-14] MEDS: *HR* Amiodarone 200 MG TABLET PO SCH (09:22)
[2020-03-14] MEDS: Folic Acid 1 MG TABLET PO SCH (09:22)
[2020-03-14] MEDS: Venlafaxine XR (24 HR) 37.5 MG CAP.ER.24H PO SCH (09:22)
[2020-03-14] MEDS: predniSONE 5 MG TABLET PO SCH ×2 (09:22→22:03)
[2020-03-14] MEDS: *HR* OxyCODONE/APAP 5/325 TABLET PO PRN ×2 (09:23→22:04)
[2020-03-14] MEDS: Nystatin POWDER 30 GM BOTTLE TP SCH ×3 (09:23→17:17)
[2020-03-14 09:33] LABS: INR 1.8; Prothrombin Time 20.6 Seconds (9.4-12.1)
[2020-03-14] MEDS ORDERED: *HR* Warfarin 1 MG TABLET PO ONE (18:00)
[2020-03-15 06:55] LABS: INR 1.9; Prothrombin Time 21.6 Seconds (9.4-12.1)
[2020-03-15] MEDS: predniSONE 5 MG TABLET PO SCH ×2 (07:28→22:09)
[2020-03-15] MEDS: Celecoxib 100 MG CAPSULE PO SCH (07:28)
[2020-03-15] MEDS: Folic Acid 1 MG TABLET PO SCH (07:28)
[2020-03-15] MEDS: Venlafaxine XR (24 HR) 37.5 MG CAP.ER.24H PO SCH (07:28)
[2020-03-15] MEDS: *HR* OxyCODONE/APAP 5/325 TABLET PO PRN ×2 (07:29→22:10)
[2020-03-15] MEDS: Ondansetron ODT 4 MG TAB.RAPDIS SL PRN (07:29)
[2020-03-15] MEDS: *HR* Amiodarone 200 MG TABLET PO SCH (07:29)
[2020-03-15] MEDS ORDERED: *HR* Methotrexate 2.5 MG TABLET PO SCH (09:00)
[2020-03-15] MEDS: Nystatin POWDER 30 GM BOTTLE TP SCH ×3 (10:45→22:11)
[2020-03-15] MEDS: Furosemide 20 MG TABLET PO SCH (17:55)
[2020-03-15] MEDS: FLEET RC PRN (17:56)
[2020-03-15] MEDS ORDERED: *HR* Warfarin 1 MG TABLET PO ONE (18:00)
[2020-03-16 06:01] LABS: INR 2.1; Prothrombin Time 23.3 Seconds (9.4-12.1)
[2020-03-16] MEDS: predniSONE 5 MG TABLET PO SCH ×2 (08:41→21:10)
[2020-03-16] MEDS: Celecoxib 100 MG CAPSULE PO SCH (08:42)
[2020-03-16] MEDS: *HR* OxyCODONE/APAP 5/325 TABLET PO PRN ×2 (08:42→21:10)
[2020-03-16] MEDS: Folic Acid 1 MG TABLET PO SCH (08:42)
[2020-03-16] MEDS: *HR* Amiodarone 200 MG TABLET PO SCH (08:42)
[2020-03-16] MEDS: Venlafaxine XR (24 HR) 37.5 MG CAP.ER.24H PO SCH (08:42)
[2020-03-16] MEDS: Nystatin POWDER 30 GM BOTTLE TP SCH ×3 (08:50→21:14)
[2020-03-16] MEDS ORDERED: *HR* Warfarin 1 MG TABLET PO ONE (18:00)
[2020-03-17 06:55] LABS: INR 2.4; Prothrombin Time 27.2 Seconds (9.4-12.1)
[2020-03-17] MEDS: Celecoxib 100 MG CAPSULE PO SCH (09:13)
[2020-03-17] MEDS: Folic Acid 1 MG TABLET PO SCH (09:13)
[2020-03-17] MEDS: Venlafaxine XR (24 HR) 37.5 MG CAP.ER.24H PO SCH (09:13)
[2020-03-17] MEDS: *HR* Amiodarone 200 MG TABLET PO SCH (09:14)
[2020-03-17] MEDS: *HR* OxyCODONE/APAP 5/325 TABLET PO PRN (09:15)
[2020-03-17] MEDS: predniSONE 5 MG TABLET PO SCH ×2 (09:15→21:27)
[2020-03-17] MEDS: Ondansetron ODT 4 MG TAB.RAPDIS SL PRN ×2 (09:15→21:27)
[2020-03-17] MEDS: Nystatin POWDER 30 GM BOTTLE TP SCH ×3 (10:25→18:07)
[2020-03-17] MEDS: Furosemide 20 MG TABLET PO SCH (17:52)
[2020-03-17] MEDS ORDERED: *HR* Warfarin 1 MG TABLET PO ONE (18:00)
[2020-03-18 06:33] LABS: INR 2.6; Prothrombin Time 28.8 Seconds (9.4-12.1)
[2020-03-18 07:12] VITALS: BP 95/58
[2020-03-18] MEDS: Celecoxib 100 MG CAPSULE PO SCH (08:59)
[2020-03-18] MEDS: Folic Acid 1 MG TABLET PO SCH (09:00)
[2020-03-18] MEDS: Venlafaxine XR (24 HR) 37.5 MG CAP.ER.24H PO SCH (09:00)
[2020-03-18] MEDS: *HR* Amiodarone 200 MG TABLET PO SCH (09:00)
[2020-03-18] MEDS: predniSONE 5 MG TABLET PO SCH (09:01)
[2020-03-18] MEDS: Ondansetron ODT 4 MG TAB.RAPDIS SL PRN (09:11)
[2020-03-18] MEDS: *HR* OxyCODONE/APAP 5/325 TABLET PO PRN (09:11)
[2020-03-18] MEDS: Nystatin POWDER 30 GM BOTTLE TP SCH (11:12)
[2020-03-18] MEDS ORDERED: *HR* Warfarin 1 MG TABLET PO ONE (18:00)
== END 2020-03-18 16:00 | disposition home health service (06) | DRG 559 ==
LOC: INPPIK 21:18
PROVIDERS: ADMIT Family Medicine; ATTEND Family Medicine